=== PATIENT | female | born 1945 | race Caucasian/White ===

== ENCOUNTER 2018-12-24 10:54 | Emergency (ER) | payer MEDICARE, OTHER ==
[~2018-12-24] VITALS: Ht 167.6 cm; Wt 108.9 kg
[~2018-12-24 10:54] MED LIST: AMLODIPINE BESY10 MG PO; D AMPHETAMINE PO; D-AMPHETAMINE PO; DIAZEPAM10 MG PO; ELMIRON100 MG PO; FUROSEMIDE40 MG PO; MECLIZINE HCL12.5 MG PO; MECLIZINE HCL25 MG PO; OLANZAPINE20 MG PO; OMEPRAZOLE20 M1 PO; OMEPRAZOLE20 MG PO; SALT PO; SERTRALINE HCL100 MG PO; SYNTHROID200 MCG PO; TRAZODONE HCL150 MG PO; TRIAZOLAM0.25 MG PO; TROSPIUM CHLORI20 MG PO; TROSPIUM CHLORIDE PO
[2018-12-24] MEDS ORDERED: TRAMADOL HCL 50 MG TAB PO ONE (11:00)
--- NOTE | 2018-12-24 14:32 | Diagnostic Imaging Report ---
EXAMINATION: CT of the chest, abdomen and pelvis without contrast. TECHNIQUE: Spiral CT images of the chest, abdomen and pelvis were performed from the lung apices to the lesser trochanters without IV or oral contrast material. Coronal and sagittal reformatted images were obtained. Technique modulation was accomplished to maintain the lowest dose to the patient. DLP: 1101.36 mGy-cm COMPARISON: CT scan of the abdomen and pelvis dated 06/21/2015 CLINICAL HISTORY: Fall DISCUSSION: CHEST: LINES/TUBES: None. LUNGS AND AIRWAYS: The lungs and airways are normal with no focal abnormality demonstrated. Left lower lobe calcified granuloma. PLEURA: The pleural spaces are clear. HEART AND MEDIASTINUM: The thyroid gland is normal. The heart and pericardium are within normal limits. Aortic, coronary artery and great vessel vascular calcification. LYMPH NODES: No significant mediastinal, hilar or axillary lymphadenopathy is seen. Calcified left hilar and mediastinal lymph nodes. BONES AND SOFT TISSUES: No bony destructive lesions. Degenerative changes of the thoracic spine. Degenerative changes of both shoulders. No compressed vertebral body segments. Old left upper rib fracture. No soft tissue abnormalities. ABDOMEN/PELVIS: HEPATOBILIARY:No focal hepatic lesions. No biliary ductal dilation. The gallbladder is normal. SPLEEN: No splenomegaly. PANCREAS: No focal masses or ductal dilatation. ADRENALS: No adrenal nodules. KIDNEYS/URETERS: No hydronephrosis, stones or solid mass lesions. Absent left kidney. PELVIC ORGANS/BLADDER: The bladder is normal. PERITONEUM/RETROPERITONEUM: No free air or fluid. LYMPH NODES: No intra-abdominal,retroperitoneal, pelvic or inguinal lymphadenopathy. VESSELS: Vascular calcification.. GI TRACT: No distention or wall thickening. BONES: No bony destructive lesions. No compressed vertebral body segments. Degenerative changes of the lumbar spine with facet arthropathy. SOFT TISSUES: Lower left abdominal hernia mesh. Right lower subcutaneous density in the lateral right flank represents minimal residual hematoma/scarring. IMPRESSION: No acute abnormality within the chest, abdomen or pelvis. Signed by: Dr. Jaswinder Barlow DO on 12/24/2018 2:23 PM
[2018-12-24 14:53] LABS: BILIRUBIN,URINE NEGATIVE (NEGATIVE); CLARITY,URINE SL CLOUDY (CLEAR); COLOR,URINE YELLOW (YELLOW); KETONES,URINE NEGATIVE (NEGATIVE); LEUKOCYTE ESTERASE ,URINE TRACE (NEGATIVE); NITRITE,URINE NEGATIVE (NEGATIVE); PROTEIN,URINE DIPSTICK NEGATIVE (NEGATIVE); URINE UROBILINOGEN 0.2 mg/dL (0.2 - 1)
[2018-12-24 15:05] LABS: BACTERIA,URINE FEW /HPF; EPITHELIAL CELLS,URINE FEW /LPF
== END 2018-12-24 15:37 | disposition home or self-care (01) ==
LOC: ER 10:54
DX: S20.211A Contusion of right front wall of thorax, initial encounter (principal); W01.0XXA Fall on same level from slipping, tripping and stumbling without subsequent striking against object, initial encounter; N39.0 Urinary tract infection, site not specified; I10 Essential (primary) hypertension; E03.9 Hypothyroidism, unspecified; G62.9 Polyneuropathy, unspecified; F31.9 Bipolar disorder, unspecified
CPT/HCPCS: 71250; 74176; 81001; 87086; 99283

== ENCOUNTER 2019-08-19 15:48 | Emergency (ER) | payer MEDICARE ==
[~2019-08-19] VITALS: Ht 165.1 cm; Wt 90.7 kg
--- OUTSIDE RECORDS SUMMARY | 2019-08-19 15:53 | XMS REPORT ---
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 Allergies, Adverse Reactions, Alerts This patient has no known allergies or adverse reactions. Medications This patient has no known medications. Results Test Description Test Time Test Comments Text Results Atomic Results Result Comments CT CHEST WO 2018-12-24 13:48:00 [place] [address] Patient Name: KELSIE MOODY MR #: [id number] : 1945 Age/Sex: 73/F Req #: [id number] Adm Physician: Ordered by: LAXMI TARIQ [employer] Report #: [id number] Location: ER Room/Bed: Procedure: [id number] CT/CT CHEST WO Exam Date: 12/24/18 Exam Time: 1130 REPORT STATUS: Signed EXAMINATION: CT of the chest, abdomen and pelvis without co ntrast. TECHNIQUE: Spiral CT images of the chest, abdomen and pelvis were performed from the lung apices to the lesser trochanters without IV or oral contrast material. Coronal and sagittal reformatted images were obtained. Technique modulation was accomplished to maintain the lowest dose to the patient. DLP: 1101.36 mGy-cm COMPARISON: CT scan of the abdomen and pelvis dated 06/21/2015 CLINICAL HISTORY: Fall DISCUSSION: CHEST: LINES/TUBES: None. LUNGS AND AIRWAYS: The lungs and airways are normal with no focal abnormality demonstrated. Left lower lobe calcified granuloma. PLEURA: The pleural spaces are clear. HEART AND MEDIASTINUM: The thyroid gland is normal. The heart and pericardium are within normal limits. Aortic, coronary artery and great vessel vascular calcification. LYMPH NODES: No significant mediastinal, hilar or axillary lymphadenopathy is seen. Calcified left hilar and mediastinal lymph nodes. BONES AND SOFT TISSUES: No bony destructive lesions. Degenerative changes of the thoracic spine. Degenerative changes of both shoulders. No compressed vertebral body segments. Old left upper rib fracture. No soft tissue abnormalities. ABDOMEN/PELVIS: HEPATOBILIARY:No focal hepatic lesions. No biliary ductal dilation. The gallbladder is normal. SPLEEN: No splenomegaly. PANCREAS: No focal masses or ductal dilatation. ADRENALS: No adrenal nodules. KIDNEYS/URETERS: No hydronephrosis, stones or solid mass lesions. Absent left kidney. PELVIC ORGANS/BLADDER: The bladder is normal. PERITONEUM/RETROPERITONEUM: No free air or fluid. LYMPH NODES: No intra-abdominal,retroperitoneal, pelvic or inguinal lymphadenopathy. VESSELS: Vascular calcification.. GI TRACT: No distention or wall thickening. BONES: No bony destructive lesions. No compressed vertebral body segments. Degenerative changes of the lumbar spine with facet arthropathy. SOFT TISSUES: Lower left abdominal hernia mesh. Right lower subcutaneous density in the lateral right flank represents minimal residual hematoma/scarring. IMPRESSION: No acute abnormality within the chest, abdomen or pelvis. Signed by: Dr. Luisa Barlow DO on 12/24/2018 2:23 PM Dictated By: LUISA BARLOW DO 1423 Transcribed By: JEFF on 12/24/18 1423 COPY TO: LAXMI TARIQ NP CT ABDOMEN/PELVIS WO 2018-12-24 13:48:00 [place] [address] Patient Name: KELSIE MOODY MR #: [id number] : 1945 Age/Sex: 73/F Req #: [id number] Adm Physician: Ordered by: LAXMI TARIQ NP Report #: [id number] Location: ER Room/Bed: Procedure: [id number] CT/CT ABDOMEN/PELVIS WO Exam Date: 12/24/18 Exam Time: 1130 REPORT STATUS: Signed EXAMINATION: CT of the chest, abdomen and pelvis w ithout contrast. TECHNIQUE: Spiral CT images of the chest, abdomen and pelvis were performed from the lung apices to the lesser trochanters without IV or oral contrast material. Coronal and sagittal reformatted images were obtained. Technique modulation was accomplished to maintain the lowest dose to the patient. DLP: 1101.36 mGy-cm COMPARISON: CT scan of the abdomen and pelvis dated 06/21/2015 CLINICAL HISTORY: Fall DISCUSSION: CHEST: LINES/TUBES: None. LUNGS AND AIRWAYS: The lungs and airways are normal with no focal abnormality demonstrated. Left lower lobe calcified granuloma. PLEURA: The pleural spaces are clear. HEART AND MEDIASTINUM: The thyroid gland is normal. The heart and pericardium are within normal limits. Aortic, coronary artery and great vessel vascular calcification. LYMPH NODES: No significant mediastinal, hilar or axillary lymphadenopathy is seen. Calcified left hilar and mediastinal lymph nodes. BONES AND SOFT TISSUES: No bony destructive lesions. Degenerative changes of the thoracic spine. Degenerative changes of both shoulders. No compressed vertebral body segments. Old left upper rib fracture. No soft tissue abnormalities. ABDOMEN/PELVIS: HEPATOBILIARY:No focal hepatic lesions. No biliary ductal dilation. The gallbladder is normal. SPLEEN: No splenomegaly. PANCREAS: No focal masses or ductal dilatation. ADRENALS: No adrenal nodules. KIDNEYS/URETERS: No hydronephrosis, stones or solid mass lesions. Absent left kidney. PELVIC ORGANS/BLADDER: The bladder is normal. PERITONEUM/RETROPERITONEUM: No free air or fluid. LYMPH NODES: No intra-abdominal,retroperitoneal, pelvic or inguinal lymphadenopathy. VESSELS: Vascular calcification.. GI TRACT: No distention or wall thickening. BONES: No bony destructive lesions. No compressed vertebral body segments. Degenerative changes of the lumbar spine with facet arthropathy. SOFT TISSUES: Lower left abdominal hernia mesh. Right lower subcutaneous density in the lateral right flank represents minimal residual hematoma/scarring. IMPRESSION: No acute abnormality within the chest, abdomen or pelvis. Signed by: Dr. Luisa Barlow DO on 12/24/2018 2:23 PM Dictated By: LUISA BARLOW DO 1423 Transcribed By: JEFF on 12/24/18 1423 COPY TO: LAXMI TARIQ [employer]
[2019-08-19] MEDS ORDERED: LIDOCAINE 1% W/EPINEPHRINE 20 ML VIAL INJ ONE (16:00)
[2019-08-19] MEDS ORDERED: TETANUS/DIPHTHERIA TOX ADULT 0.5 ML SYR IM ONE (16:00)
--- NOTE | 2019-08-19 17:06 | Diagnostic Imaging Report ---
EXAMINATION: KNEE RIGHT THREE VIEWS INDICATION: Fall COMPARISON: None FINDINGS: AP, lateral and oblique images of the right knee were obtained. No acute fracture or dislocation. Lyme is anatomic. Moderate patellofemoral compartment predominant tricompartmental degenerative changes. No substantial joint effusion. IMPRESSION: No acute osseous injury. Moderate patellofemoral compartment predominant tricompartmental degenerative changes. Signed by: Karen Lewis MD on 08/19/2019 5:02 PM
--- NOTE | 2019-08-19 17:42 | Diagnostic Imaging Report ---
Examination: CT BRAIN WITHOUT CONTRAST History:Fall. Head injury. Syncope. Comparison studies:None available at the time of dictation. Technique: Axial images were obtained from the skull base to the vertex. Coronal and sagittal images reconstructed from the axial data. Intravenous contrast: None Findings: Scalp: No abnormalities. Bones: No fractures, blastic or lytic lesions. Brain sulci: Mild volume loss, unchanged. Ventricles: Normal in size and configuration. No hydrocephalus. Parenchyma: There are mild confluent areas of hypoattenuation in the periventricular and subcortical white matter, nonspecific, it is compatible with microvascular changes and is unchanged when compared to prior report. There is a chronic lacunar infarct within the right caudate body, genu of the internal capsule and globus pallidus. There is cortical based encephalomalacia involving the lingual gyrus of the left occipital lobe and tail of the left hippocampus, consistent with prior posterior cerebral artery territory infarct, also unchanged compared to prior exam report. No masses, hemorrhage, or acute vascular insults. Sellar/suprasellar region: No abnormalities. Craniocervical junction: Patent foramen magnum. No Chiari one malformation. Incidental findings: Bilateral slitlike lenses. Atherosclerotic calcification of the cavernous and supraclinoid internal carotid arteries. Impression: 1. No acute intracranial abnormalities. 2. Mild to moderate chronic microvascular ischemic change and volume loss. 3. 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 Signed by: Dr. Kary Ardon M.D. on 08/19/2019 5:38 PM
--- NOTE | 2019-08-19 18:20 | Diagnostic Imaging Report ---
Examination: CT CERVICAL SPINE WO CONTRAST HISTORY:Neck injury and pain after fall. COMPARISON:None. TECHNIQUE: Multidetector helical axial images were obtained without contrast from the foramen magnum to T1. Coronal and sagittal reformatted images were done. Bone and soft tissue windows were evaluated. Dose modulation, iterative reconstruction, and/or weight based adjustment of the mA/kV was utilized to reduce the radiation dose to as low as reasonably achievable. FINDINGS: Alignment:Normal alignment and lordosis. Vertebrae: Normal height and density. No acute fracture, infection or neoplasm. Anterior osteophyte and C4-C7. Caliber of spinal canal: Developmentally normal. Posterior fossa and craniocervical junction: Foramen magnum patent. No Chiari 1 malformation. Soft tissues: Atherosclerotic calcification of the bilateral carotid bifurcations. Degenerative changes: Mild to moderate bilateral facet arthropathy from C2-C3 through C6-C7. Disc osteophyte complexes at C3-C4, C4-C5, C5-C6 with severe right foraminal narrowing and mild canal stenosis at C4-C5 and C5-C6. Visualized lung apices: No abnormalities. IMPRESSION: 1. No acute abnormalities. 2. Degenerative changes, as above. Signed by: Dr. Kary Ardon M.D. on 08/19/2019 6:17 PM
[2019-08-19 18:47] VITALS: BP 146/75
== END 2019-08-19 18:49 | disposition home or self-care (01) ==
LOC: ER 15:48
DX: S06.890A Other specified intracranial injury without loss of consciousness, initial encounter (principal); S01.511A Laceration without foreign body of lip, initial encounter; M25.561 Pain in right knee; W01.0XXA Fall on same level from slipping, tripping and stumbling without subsequent striking against object, initial encounter; Y92.008 Other place in unspecified non-institutional (private) residence as the place of occurrence of the external cause; I10 Essential (primary) hypertension; E03.9 Hypothyroidism, unspecified
CPT/HCPCS: 70450; 72125; 90471; 90714; 99282